=== PATIENT | female | born 1985 | race Caucasian/White ===

== ENCOUNTER 2020-08-26 22:23 | Emergency (ER) | payer OTHER ==
[~2020-08-26] VITALS: Ht 152.4 cm; Wt 54.5 kg
[2020-08-26 22:56] LABS: BASOPHILS % (AUTO) 0.4 % (0-1); EOSINOPHILS % (AUTO) 0.1 % (0-6); HEMATOCRIT 44.1 % (35.0-45.0); HEMOGLOBIN 14.7 g/dl (12.0-16.0); LYMPHOCYTES # (AUTO) 1.4 X10'3 (1.1-4.8); LYMPHOCYTES % (AUTO) 15.3 % (21-51); MEAN CORPUSCULAR HEMOGLOBIN 30.6 PG (27.0-31.0); MEAN CORPUSCULAR HGB CONC 33.4 g/dL (33.0-36.5); MEAN CORPUSCULAR VOLUME 91.7 FL (78-98); MEAN PLATELET VOLUME 10.3 FL (7.4-10.4); MONOCYTES # (AUTO) 0.9 X10'3 (0-0.9); MONOCYTES % (AUTO) 9.8 % (2-12); NEUTROPHILS # (AUTO) 6.8 X10'3 (1.8-7.7); NEUTROPHILS % (AUTO) 74.4 % (42-75); PLATELET COUNT 258 X10'3 (140-440); RED BLOOD COUNT 4.81 X10'6 (4.20-5.60); RED CELL DISTRIBUTION WIDTH 13.5 % (11.5-14.5); WHITE BLOOD COUNT 9.1 X10'3 (4.5-11.0)
[2020-08-26 23:26] LABS: ALANINE AMINOTRANSFERASE 24 U/L (12-78); ALBUMIN 4.8 G/DL (3.4-5.0); ALBUMIN/GLOBULIN RATIO 1.2 (1.1-1.5); ALKALINE PHOSPHATASE 97 IU/L (46-116); ANION GAP 13 (8-16); ASPARTATE AMINO TRANSFERASE 22 U/L (10-37); BILIRUBIN,TOTAL 0.3 MG/DL (0.1-1.0); BLOOD UREA NITROGEN 13 MG/DL (7-18); CHLORIDE 102 MMOL/L (99-107); ETHANOL < 0.010 GM/DL (0.0-0.010); GLUCOSE 168 MG/DL (70-104); SODIUM 144 MMOL/L (135-145); TOTAL CARBON DIOXIDE 29.5 MMOL/L (24-32); TOTAL PROTEIN 8.8 G/DL (6.4-8.2); eGFR 61 ML/MIN
[2020-08-26 23:33] LABS: ACETAMINOPHEN < 2.0 UG/ML (10-30); POTASSIUM 2.9 MMOL/L (3.5-5.1)
[2020-08-26] MEDS: magnesium 2GM in 50ml NS 50 ML IV ONE (23:50)
[2020-08-26] MEDS ORDERED: potassium Cl 20 mEq SR tablet PO ONE (23:50)
[2020-08-26] MEDS: normal saline 1000ML IV soln IVB ONE (23:50)
[2020-08-26] MEDS ORDERED: magnesium oxide 400mg tablet PO ONE (23:50)
[2020-08-26] MEDS: potassium Cl 10 mEq/100mL bag IV ONE (23:55)
--- NOTE | 2020-08-27 00:04 | NUR ---
attempted to start IV, offered fluids and medications rx by md. pt refused. 'mmlenorem, i'm alright'
--- NOTE | 2020-08-27 01:52 | NUR ---
ATTEMPTED TO START IV ON PT, PT REFUSING DESPITE BEING TOLD RISKS OF REFUSING IV MEDICATIONS. FERRO AWARE AND REITERATED CONSEQUENCES EVEN UP TO . PT CONTINUE TO REFUSE
--- NOTE | 2020-08-27 03:49 | NUR ---
PT STILL REFUSING TX AT THIS TIME, AWARE. SAYS 'NO, I'M OKAY' NOT ALLOWING TO PUT PULSE OX ON FINGER
--- NOTE | 2020-08-27 04:53 | NUR ---
pt still refusing to allow spo2, bp cuff and ecg leads on
--- NOTE | 2020-08-27 05:29 | NUR ---
spoke with md regarding tachycardia, agrees with plan to write orders to help calm pt for medical assistance r/t increasing unstable vitals and agitation
[2020-08-27] MEDS ORDERED: diphenhydrAMINE 50 mg/ml inj IM ONE (05:30)
[2020-08-27] MEDS ORDERED: LORazepam 2 mg/ml vial IM ONE (05:30)
[2020-08-27] MEDS ORDERED: OLANZapine **IM** 10 mg inj. IM ONE (05:30)
--- NOTE | 2020-08-27 05:53 | NUR ---
okay with earlier ordres for fluids and electrolytes for pt when line established
[2020-08-27] MEDS: normal saline 1000ML IV soln IVB ONE (06:13)
[2020-08-27] MEDS: potassium Cl 10 mEq/100mL bag IV ONE (06:13)
[2020-08-27] MEDS: magnesium 2GM in 50ml NS 50 ML IV ONE (06:13)
[2020-08-27 06:21] LABS: URINE HCG NEGATIVE (NEG)
--- NOTE | 2020-08-27 06:30 | NUR ---
obtained 20G right ac iv access, straight cath done per md orders, urine sent to lab. pt tolerated well with assitance from 3 other staff
[2020-08-27 06:32] LABS: CLARITY,URINE CLOUDY (Clear); COLOR,URINE YELLOW (Yellow); GLUCOSE, URINE NEGATIVE (Neg); KETONES,URINE NEGATIVE (Neg); LEUKOCYTE ESTERASE ,URINE NEGATIVE (Neg); NITRITES, URINE NEGATIVE (Neg); OCCULT BLOOD,URINE MODERATE (Neg); PH,URINE 8.5 (4.8-8.0); PROTEIN,URINE NEGATIVE (Neg); UROBILINOGEN,URINE >=8.0 E.U/dL (0.2-1.0)
[2020-08-27 06:38] LABS: URINE AMPHETAMINE SCREEN POSITIVE (Neg); URINE BARBITUATE SCREEN NEGATIVE (Neg); URINE BENZODIAZEPINES SCREEN NEGATIVE (Neg); URINE CANNABINOID SCREEN NEGATIVE (Neg); URINE COCAINE SCREEN NEGATIVE (Neg); URINE METHADONE SCREEN NEGATIVE (Neg); URINE OPIATE SCREEN NEGATIVE (Neg); URINE PHENCYCLIDINE SCREEN NEGATIVE (Neg)
[2020-08-27 06:39] LABS: UA COLLECTION TYPE STRAIGHT CATH
[2020-08-27 06:40] LABS: AMORPHOUS PHOSPHATES 2+; BACTERIA,URINE NONE SEEN /HPF (Neg); MUCUS STRANDS NONE SEEN /LPF (Neg); SQUAMOUS EPITHELIAL CELL,UR FEW /LPF (FEW); WBC,URINE 0-4 /HPF (0-4)
--- NOTE | 2020-08-27 07:29 | NUR ---
PACKET FAXED TO [facility]
--- NOTE | 2020-08-27 08:23 | NUR ---
Pt given food tray, not eating. Asks me "can we get this out of my arm." Referrs to IV, states "I was just hoping it could come out." Encouraged pt to eat. Encouraged her to leave IV, now SL'ed, in RAC. Pt sitting quietly in bed, awake, looking down.
--- NOTE | 2020-08-27 09:00 | NUR ---
pt removed IV, bandage applied.
--- NOTE | 2020-08-27 09:59 | NUR ---
Contacted SHON,juan castillo/Jose, requesting [employer] assistance w/ pt identification. Per Telly [employer] tried identifying pt via tatoos including "MARY" indicating presented photo "kind of looked like pt", but not with high confidence.
--- NOTE | 2020-08-27 10:34 | NUR ---
Pt has pulled out her IV, is standing at the window of ED room 7, still refusing to answer question of who she is. Spoke with Dr. Mckenzie re: K level. We will attempt to give her PO KCL, reports no need to recheck KCL at this time.
[2020-08-27] MEDS ORDERED: POTASSIUM BICARB 20meq eff tab 20 MEQ TABLET.EFF PO STA (10:36)
--- NOTE | 2020-08-27 10:50 | NUR ---
[employer] [facility] [place] [facility][id number] identifed pt as Reyna Oleary, : 81. Registration provided updated info.
[2020-08-27] MEDS ORDERED: POTASSIUM BICARB 20meq eff tab 20 MEQ TABLET.EFF PO ONE (11:00)
--- NOTE | 2020-08-27 18:30 | NUR ---
Pt transferred to ER Overflow bed 21 from main ER. Pt was able to ambulate independently to overflow and settled right into bed upon transfer. Pt agreeable and cooperative during the transfer
--- NOTE | 2020-08-28 04:58 | NUR ---
Pt is currently lying in bed and appears to be resting comfortably. No apparent s/s of distress noted. Pt has been resting in her bed all shift except for when pt was being evaluated by [facility].
--- NOTE | 2020-08-28 06:20 | NUR ---
Assumed care of patient. Received report from SHAMAR Hooker. Pt comfortably asleep, rr even and unlabored.
--- NOTE | 2020-08-28 08:28 | NUR ---
Pt continues to sleep with no distress noted. Pt was awoken for breakfast, but didn't eat. Pt is arousable. Industrial Psychology Professor was able to obtain heart/lung ausculations. Pt didn't answer any questions. Pt was calm during short interaction. An EKG order was placed, but the d/c'd as a duplicate order.
--- NOTE | 2020-08-28 10:33 | NUR ---
Pt sleeping on left side, no distress noted. Respirations even and unlabored.
--- NOTE | 2020-08-28 12:24 | NUR ---
Pt resting comforatably, observed opening eyes then turned to cover up head. Audible breath sounds noted, no distress.
--- NOTE | 2020-08-28 14:21 | NUR ---
Pt sleeping on right side, no distress noted. Respirations even and unlabored.
--- NOTE | 2020-08-28 16:21 | NUR ---
Patient sleeping comfortably on right side, no distress noted. RR even and unlabored.
--- NOTE | 2020-08-28 17:59 | NUR ---
Patient up and eating dinner at bedside. Pt smiles and states she "feeling fine." Pt finishes dinner then lays back down and sleeps. Pt has remained calm all shift.
--- NOTE | 2020-08-28 19:46 | NUR ---
Pt resting in bed at this time. Pt ambulated safely to restroom and back to bed. Currently has blankets over her head in attempt to sleep.
--- NOTE | 2020-08-28 21:05 | NUR ---
Pt sleeping, RR 16 with no signs of distress
--- NOTE | 2020-08-29 01:00 | NUR ---
Pt resting in bed on side rr-16 in no obvious distress
--- NOTE | 2020-08-29 03:04 | NUR ---
Pt sleeping, went to bathroom again and safely back in bed in position of comfort. RR 16
--- NOTE | 2020-08-29 05:58 | NUR ---
Pt appears to be sleeping, RR14 and she has gone to the bathroom safely again on her own.
--- NOTE | 2020-08-29 07:00 | NUR ---
Received pt asleep in bed without signs of distress.
--- NOTE | 2020-08-29 09:00 | NUR ---
Pt did not wake for breakfast and continues to sleep without signs of distress.
--- NOTE | 2020-08-29 11:00 | NUR ---
Pt has remained asleep without signs of distress.
--- NOTE | 2020-08-29 13:00 | NUR ---
Pt continues to sleep without waking to even eat lunch. No distress noted.
[2020-08-29 18:05] VITALS: BP 95/88
--- NOTE | 2020-08-29 19:28 | NUR ---
Pt asleep at start of shift. Tray at bedside pt ate 100%. Pt woke easily but briefly for introductions immediatly back to sleep.
[2020-08-29 20:47] LABS: ANION GAP 7 (8-16); BLOOD UREA NITROGEN 13 MG/DL (7-18); BUN/CREATININE RATIO 12.9 (6.6-38.0); CALCIUM 8.4 MG/DL (8.5-10.1); CHLORIDE 105 MMOL/L (99-107); CREATININE 1.01 MG/DL (0.40-0.90); GLUCOSE 116 MG/DL (70-104); POTASSIUM 3.6 MMOL/L (3.5-5.1); SODIUM 142 MMOL/L (135-145); TOTAL CARBON DIOXIDE 29.6 MMOL/L (24-32); eGFR 62 ML/MIN
--- NOTE | 2020-08-29 21:29 | NUR ---
Pt sleeping up to BR independantly x1.
[2020-08-29] MEDS ORDERED: NO HOME MEDS (21:32)
== END 2020-08-29 21:58 ==
LOC: ER 22:25 → EDBD 22:25 → ER 08-29 21:58
DX: F79 Unspecified intellectual disabilities (principal); E87.6 Hypokalemia
CPT/HCPCS: 36415; 71045; 80048; 80053; 80305; 80320; 80329; 81001; 81025; 83735; 84443; 85025; 93005; 96365; 96368; 96372; 99285; J1200; J2060; J3475; J3480; J3490; J7030